=== PATIENT | male | born 1965 | race Caucasian/White ===

== ENCOUNTER 2016-05-17 16:09 | Inpatient (IN) | payer OTHER, MEDICARE ==
[~2016-05-17] VITALS: Ht 165.1 cm; Wt 67.1 kg
[~2016-05-17 16:09] MED LIST: [UNRECOGNIZED DRUG - OTHER] PO
[2016-05-17 16:15] VITALS: BP 159/87; PULSE 88; RESP 17; TEMP 97; O2SAT 97
[2016-05-17 18:13] LABS: AUTOMATED NEUTROPHIL # 6.1 TH/MM3 (1.8-7.7); BASOPHIL # 0.1 TH/MM3 (0-0.2); BASOPHIL % 0.6 % (0.0-2.0); EOSINOPHIL % 0.5 % (0.0-4.0); HEMATOCRIT 43.6 % (39.0-51.0); HEMO FLAGS DIFF FINAL; LYMPH % 24.3 % (9.0-44.0); LYMPHOCYTE # 2.3 TH/MM3 (1.0-4.8); MEAN CELL VOLUME 91.8 FL (80.0-100.0); MEAN CORPUSCULAR HEMOGLOBIN 31.5 PG (27.0-34.0); MEAN CORPUSCULAR HGB CONC 34.3 % (32.0-36.0); MONO % 9.9 % (0.0-8.0); NEUT % 64.7 % (16.0-70.0); PLATELET COUNT 171 TH/MM3 (150-450); RED BLOOD COUNT 4.75 MIL/MM3 (4.50-5.90); RED CELL DISTRIBUTION WIDTH 11.7 % (11.6-17.2); WHITE BLOOD COUNT 9.4 TH/MM3 (4.0-11.0)
[2016-05-17] MEDS ORDERED: BACLOFEN 10 MG TAB PO ONE (18:15)
[2016-05-17] MEDS ORDERED: IBUPROFEN 800 MG TAB PO ONE (18:15)
[2016-05-17 18:37] LABS: ALT (GPT) 12 U/L (12-78); ANION GAP 7 MEQ/L (5-15); AST (GOT) 3 U/L (15-37); BICARBONATE 28.4 MEQ/L (21.0-32.0); BLOOD UREA NITROGEN 18 MG/DL (7-18); CHLORIDE 98 MEQ/L (98-107); GLOMERULAR FILTRATION RATE 84 ML/MIN (>89); POTASSIUM 3.8 MEQ/L (3.5-5.1); SODIUM (NA) 133 MEQ/L (136-145)
[2016-05-17 18:39] LABS: ALKALINE PHOSPHATASE 51 U/L (45-117); TOTAL BILIRUBIN ADULT 0.3 MG/DL (0.2-1.0)
--- NOTE | 2016-05-17 18:45 | PD ---
HPI Chief Complaint: Psychiatric Symptoms Time Seen by Provider: 18:00 Travel History International Travel<30 days: No Contact w/Intl Traveler<30days: No Traveled to known affect area: No History of Present Illness HPI Patient is a 51-year-old male who presents to the emergency Department under a Vicente act for suicidal ideations. Patient states that he told his that he was seeing and hearing things began, this started an argument with his he subsequently called the police on himself and they Vicente acted him after he told them that he was going to harm himself. Patient states that he has a previous suicide attempt when he was 17 years old after his father . He states at that time he took pills and drank a lot of alcohol. Patient's past medical history includes bipolar disorder, chronic back pain, type 2 diabetes on metformin. PFS Past Medical History Bipolar Disorder: Yes Heart Rhythm Problems: Yes (TACHYCARDIA) Diminished Hearing: No Musculoskeletal: Yes (chronic back pain) Past Surgical History Other Surgery: Yes (NERVE STIMULATOR IMPLANTED FOR BACK PAIN; EPIDURAL INJECTIONS X 6) Social History Alcohol Use: No Tobacco Use: Yes (3/4 PPD) Substance Use: No Allergies-Medications (Allergen,Severity, Reaction): Coded Allergies: Erythromycin (Verified Allergy, Severe, 01/26/09) Penicillin (Verified Allergy, Severe, 01/26/09) Reported Meds & Prescriptions Reported Meds & Active Scripts Active Reported [Cybaxin] 4 Mg PO QID Review of Systems Except as stated in HPI: all other systems reviewed are Neg Musculoskeletal: Positive: Myalgias, Pain (chronic in his back) Psychiatric: Positive: Suicidal Ideations, Mood Disorder Physical Exam Narrative GENERAL: Well-developed, well-nourished, alert male. Sitting comfortably in chair, in no acute distress. SKIN: Warm and dry. HEAD: Atraumatic. Normocephalic. EYES: Pupils equal and round. No scleral icterus. No injection or drainage. ENT: No nasal bleeding or discharge. Mucous membranes pink and moist. NECK: Trachea midline. No JVD. CARDIOVASCULAR: Regular rate and rhythm. No murmur appreciated. RESPIRATORY: No accessory muscle use. Clear to auscultation. Breath sounds equal bilaterally. GASTROINTESTINAL: Abdomen soft, non-tender, nondistended. Hepatic and splenic margins not palpable. MUSCULOSKELETAL: No obvious deformities. No clubbing. No cyanosis. No edema. NEUROLOGICAL: Awake and alert. No obvious cranial nerve deficits. Motor grossly within normal limits. Normal speech. PSYCHIATRIC: Appropriate mood and affect Data Data Last Documented VS Vital Signs Date Time Temp Pulse Resp B/P Pulse Ox O2 Delivery O2 Flow Rate FiO2 05/17/16 16:15 97.0 88 17 159/87 97 Orders Complete Blood Count With Diff (05/17/16 17:06) Comprehensive Metabolic Panel (05/17/16 17:06) Drug Screen, Random Urine (05/17/16 17:06) Alcohol (Ethanol) (05/17/16 17:06) Psych Screen (05/17/16 17:06) Baclofen (Lioresal) (05/17/16 18:15) Ibuprofen (Motrin) (05/17/16 18:15) Labs Laboratory Tests Test 05/17/16 17:10 White Blood Count 9.4 TH/MM3 Red Blood Count 4.75 MIL/MM3 Hemoglobin 14.9 GM/DL Hematocrit 43.6 % Mean Corpuscular Volume 91.8 FL Mean Corpuscular Hemoglobin 31.5 PG Mean Corpuscular Hemoglobin 34.3 % Concent Red Cell Distribution Width 11.7 % Platelet Count 171 TH/MM3 Mean Platelet Volume 9.3 FL Neutrophils (%) (Auto) 64.7 % Lymphocytes (%) (Auto) 24.3 % Monocytes (%) (Auto) 9.9 % Eosinophils (%) (Auto) 0.5 % Basophils (%) (Auto) 0.6 % Neutrophils # (Auto) 6.1 TH/MM3 Lymphocytes # (Auto) 2.3 TH/MM3 Monocytes # (Auto) 0.9 TH/MM3 Eosinophils # (Auto) 0.0 TH/MM3 Basophils # (Auto) 0.1 TH/MM3 CBC Comment DIFF FINAL Differential Comment Sodium Level 133 MEQ/L Potassium Level 3.8 MEQ/L Chloride Level 98 MEQ/L Carbon Dioxide Level 28.4 MEQ/L Anion Gap 7 MEQ/L Blood Urea Nitrogen 18 MG/DL Creatinine 0.95 MG/DL Estimat Glomerular Filtration 84 ML/MIN Rate Random Glucose 97 MG/DL Calcium Level 9.3 MG/DL Total Bilirubin 0.3 MG/DL Aspartate Amino Transf 3 U/L (AST/SGOT) Alanine Aminotransferase 12 U/L (ALT/SGPT) Alkaline Phosphatase 51 U/L Total Protein 7.4 GM/DL Albumin 4.1 GM/DL Ethyl Alcohol Level LESS THAN 3 MG/DL MDM Medical Decision Making Medical Screen Exam Complete: Yes Emergency Medical Condition: Yes Interpretation(s) Vital Signs Date Time Temp Pulse Resp B/P Pulse Ox O2 Delivery O2 Flow Rate FiO2 05/17/16 16:15 97.0 88 17 159/87 97 Differential Diagnosis Substance abuse versus mood disorder versus depression versus delirium versus psychosis versus bipolar disorder Narrative Course Patient is a 51-year-old male that was brought in under Vicente act for suicidal ideations. Patient is alert and oriented, he has no physical complaints other than his chronic back pain at this time. He does endorse visual and auditory hallucinations. He also endorses telling the police that he would kill himself. Patient has a previous suicide attempt. Labs ordered and pending. Patient was given medications to help alleviate his chronic back pain, he was moved to a stretcher for comfort and given a meal tray. Labs reviewed and are unremarkable. Patient's vital signs are stable. He is medically cleared at this time for psychiatric evaluation Diagnosis Primary Impression: Medical clearance for psychiatric admission Additional Impression: Suicidal ideation Condition: Stable Bernice Casillas May 17, 2016 18:45
[2016-05-17 22:41] VITALS: BP 134/65; PULSE 69; RESP 18; O2SAT 99
[2016-05-18] MEDS: LORazepam 1 MG TAB PO PRN ×2 (01:00→09:27)
[2016-05-18] MEDS ORDERED: MAGNESIUM HYDROXIDE SUSP 30 ML CUP PO PRN ×2 (01:00→16:00)
[2016-05-18] MEDS ORDERED: diphenhydrAMINE HCL 50 MG CAP PO PRN (01:00)
[2016-05-18] MEDS ORDERED: hydrOXYzine HCL 50 MG TAB PO PRN (01:00)
[2016-05-18] MEDS ORDERED: HALOPERIDOL 5 MG TAB PO SCH (01:00)
[2016-05-18] MEDS ORDERED: LORazepam 2 MG/ML VIAL IM PRN (01:00)
[2016-05-18] MEDS ORDERED: ALUMINUM/MAGNESIUM/SIMETH 30 ML CUP PO PRN (01:00)
[2016-05-18] MEDS ORDERED: BENZTROPINE MESYLATE 1 MG TAB PO PRN (01:00)
[2016-05-18] MEDS ORDERED: diphenhydrAMINE HCL 50 MG/ML VIAL IM PRN (01:00)
[2016-05-18] MEDS ORDERED: BENZTROPINE MESYLATE 2 MG/2 ML VIAL IM PRN (01:00)
[2016-05-18] MEDS ORDERED: GABA600T PO (01:15)
[2016-05-18] MEDS ORDERED: METO50TA PO (01:15)
[2016-05-18] MEDS ORDERED: GEMF600T PO (01:15)
[2016-05-18] MEDS ORDERED: AMLO5TAB2 PO (01:15)
[2016-05-18] MEDS ORDERED: HYDR-3366 PO (01:15)
[2016-05-18] MEDS ORDERED: LISI40TA PO (01:15)
[2016-05-18] MEDS ORDERED: SERO100T PO (01:15)
[2016-05-18] MEDS ORDERED: VORT1TAB2 PO (01:15)
[2016-05-18] MEDS ORDERED: METF500T PO (01:15)
[2016-05-18] MEDS: ACETAMINOPHEN 325 MG TAB PO PRN (02:32)
[2016-05-18 02:38] VITALS: BP 127/92; PULSE 82; RESP 18; TEMP 98
[2016-05-18 06:20] VITALS: BP 129/69; PULSE 71; RESP 18; TEMP 98; O2SAT 98
[2016-05-18 06:52] LABS: BASOPHIL % 0.7 % (0.0-2.0); EOSINOPHIL # 0.1 TH/MM3 (0-0.4); EOSINOPHIL % 0.8 % (0.0-4.0); HEMATOCRIT 43.2 % (39.0-51.0); HEMO FLAGS DIFF FINAL; LYMPH % 25.6 % (9.0-44.0); LYMPHOCYTE # 1.6 TH/MM3 (1.0-4.8); MEAN CELL VOLUME 92.1 FL (80.0-100.0); MEAN CORPUSCULAR HEMOGLOBIN 31.3 PG (27.0-34.0); MONO % 10.6 % (0.0-8.0); NEUT % 62.3 % (16.0-70.0); PLATELET COUNT 162 TH/MM3 (150-450); RED BLOOD COUNT 4.69 MIL/MM3 (4.50-5.90); RED CELL DISTRIBUTION WIDTH 11.8 % (11.6-17.2); WHITE BLOOD COUNT 6.4 TH/MM3 (4.0-11.0)
[2016-05-18 07:03] LABS: ANION GAP 6 MEQ/L (5-15); BICARBONATE 30.9 MEQ/L (21.0-32.0); BLOOD UREA NITROGEN 17 MG/DL (7-18); CHLORIDE 101 MEQ/L (98-107); GLOMERULAR FILTRATION RATE 90 ML/MIN (>89); SODIUM (NA) 138 MEQ/L (136-145); THYROXINE (T4) 5.5 MCG/DL (4.5-12.1)
[2016-05-18 07:12] LABS: HDL CHOLESTEROL 46.4 MG/DL (40.0-60.0); LDL CHOLESTEROL 72 MG/DL (0-99)
[2016-05-18] MEDS: NICOTINE 21 MG/24 HR PATCH T-DERMAL SCH (08:55)
[2016-05-18] MEDS: HALOPERIDOL 5 MG TAB PO SCH ×2 (08:55→20:13)
[2016-05-18] MEDS ORDERED: DEXTROSE 50% IN WATER 50 ML VIAL(D50) IV PUSH PRN (11:30)
[2016-05-18] MEDS ORDERED: GLUCAGON 1 MG/ML VIAL OTHER PRN (11:30)
[2016-05-18] MEDS: METOPROLOL TARTRATE 50 MG TAB PO SCH ×2 (11:45→20:13)
[2016-05-18] MEDS: amLODIPine BESYLATE 5 MG TAB PO SCH (11:45)
[2016-05-18] MEDS: GEMFIBROZIL 600 MG TAB PO SCH ×2 (11:45→16:00)
[2016-05-18] MEDS: GABAPENTIN 300 MG CAP PO SCH ×2 (12:31→17:07)
[2016-05-18] MEDS: metFORMIN HCL 500 MG TAB PO SCH ×2 (13:30→17:07)
--- NOTE | 2016-05-18 13:35 | MB ---
cc: KELSY ALFARO DATE OF CONSULTATION 05/18/2016 DATE OF [address] Serrano/[facility] CONSULTING DOCTOR Dr. Kelsy Alafro REASON FOR ADMISSION Psychiatric problem REASON FOR CONSULTATION Assistance in medical management. HISTORY OF PRESENT ILLNESS The patient is very pleasant 51-year-old male with a significant past medical history of hypertension, diabetes who was brought to the ER under a Vicente Act because of the suicidal ideation. The patient was seeing things and hearing things. He called the police on himself and Vicente Acted. He was brought to the ER. In the ER, he was evaluated by the ER physician and admitted to the psychiatric facility because of suicidal ideation. The patient was seen in his room in the psychiatric facility with the RN at bedside. The patient was complaining of just back pain. He wants his pain medication which he is taking. He has a chronic back problem for which he was taking pain medication at home. As per patient, he had a neck stimulator in the past which was taken off because it was malfunctioning. The patient has no other problems. He denies any headache, dizziness, nausea or vomiting, chest pain, diaphoresis, palpitations, cough, fever, chills, abdominal pain, diarrhea or constipation, genitourinary symptoms. There is no rash or itching. PAST MEDICAL HISTORY Hypertension Diabetes Bipolar disorder Chronic back pain seems like dependent. PAST SURGICAL HISTORY Nerve stimulator implanted for the back pain in the past. It was taken out. REVIEW OF SYSTEMS As described above, otherwise negative for 10 systems. SOCIAL HISTORY The patient smokes, as per the patient's three-quarters of a pack per day. He does not drink or do any drugs. He is and lives with his . He does not do any work. ALLERGIES THE PATIENT IS ALLERGIC TO ERYTHROMYCIN AND PENICILLIN. MEDICATIONS Reviewed please SEE EMR. FAMILY HISTORY Noncontributory EXAMINATION The patient is alert and oriented x3, well-built, well-nourished sitting on the bed before examination without any apparent distress. VITAL SIGNS: The patient is afebrile, pulse is 71, respiratory rate is 18, blood pressure 129/69, pulse of 98% on room air. HEENT: Head is atraumatic, normocephalic. Eyes negative conjunctival icterus. Mouth unremarkable. NECK: Supple, no increased in JVD. Negative thyromegaly. Central trachea. RESPIRATORY: Chest is clear to auscultation. CARDIOVASCULAR: S1 and S2 audible. Unable to hear an S3 gallop. GI: Abdomen soft and nontender, no organomegaly. Positive bowel sounds. MUSCULOSKELETAL: No cyanosis or pedal edema appreciated. CHECK SCALER: Alert, oriented, normal facial features, normal power and tone of extremities. SKIN: Warm and dry. PSYCH: Flat affect. INVESTIGATIONS CBC within normal limits. BMP within normal limits. LFTs within normal limits. Ethyl alcohol level less than 3. ASSESSMENT 1. Suicidal thoughts and ideation 2. Bipolar disorder 3. Hypertension 4. Diabetes 5. Chronic back pain 6. Nicotine abuse RECOMMENDATIONS 1. Continue home medication as reviewed and as indicated. 2. Continue pain medication as the patient is taking at home. 3. Continue antidiabetic medication as the patient is taking at home. 4. Sliding scale insulin coverage with low-dose NovoLog. 5. Monitor BP. 6. Psychiatric management as per psychiatrist. 7. Counseled about anti-smoking. 8. Condition discussed with the patient. 9. Further recommendations to follow as per patient progress. 10. We will follow the patient. Thank you Dr. Kumar/Maggie for this consultation. We will follow with you. Kelsy Alfaro MD JP/[place]ARLAND /1:04 PM /1:20 PM
[2016-05-18] MEDS: INSULIN NovoLIN REGULAR SUPPLEMENTAL SCALE SQ SCH ×2 (16:00→21:00)
--- NOTE | 2016-05-18 16:12 | MH ---
cc: HARRISON SMITH M.D. DATE OF ADMISSION 05/18/2016 PRESENTING CHIEF COMPLAINT AND HISTORY OF PRESENT ILLNESS This 51-year-old white male was initially evaluated at the emergency service of [facility] where he was taken by the police under a Vicente ACT because of suicidal thoughts. Because of his medical issues he was transferred to the emergency room of this hospital where he was admitted after being medically cleared. Apparently he has been feeling quite distressed because of the chronic back pain. During his evaluation by the psychiatric screener he indicated that he has been hearing voices for sometime which he attributed to the medication prescribed by his primary care physician. During this evaluation he denied any suicidal or homicidal ideations. Prior to evaluation the case was discussed with the nursing staff on the unit who indicated since admission he has been somewhat depressed, seclusive and self isolative. Present during this evaluation was [employer] social [employer] senior associate and KIRTI Summers. At the time of this evaluation Mr. Silva looked somewhat depressed and displayed underlying anger. When asked about his understanding of the reason for this hospitalization he responded "I have been getting angry, I have been getting anxious. I tried to talk to my and she was not willing to listen so I became more angry and I called the police and told them that I was thinking of hurting myself. They Vicente Acted me and took me to [facility] but then they transferred me here because of my medical issues." He mentioned that he has experienced "anxiety and depression" for many years, especially after the of his father in the mid 80s. He stated that he was very close to him. He described himself as being "sad and grumpy most of the time" for past several months. He mentioned occasionally he would feel "happy" however, however when further explored he did not give any history suggestive of hypomania or eladio. He stated he has been having difficulty falling asleep and would wake up in the middle of night. He denied experiencing any nightmares. He mentioned his appetite had declined. When specifically inquired about his suicidal thoughts he indicated that he did make such statements prior to admission out of anger and frustration at his but denied actual intent or plan "I was not going to do it." He stated that soon after the of his father in the mid 80s he overdosed but did not tell anybody and as such did not receive any treatment. He mentioned over the years his memory and concentration also had declined. When further explored he acknowledged him not having much communication with his . 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 He sustained a work-related injury about 13 years ago and since then has not been gainfully employed and is on disability. He described his typical day as waking up in the morning, dropping his son to school and waiting for his to come home. having a cup of coffee. At this time his goes to sleep and he watches TV and feels "bored." Around 6:00 p.m. his goes back to work and he has nothing much to do. From what he described he does not have much in the form of social support except his . They have been for 20 years and according to him they have been having frequent arguments. He denied any other known psychosocial stressors. He did not give any history suggestive of panic disorder. PAST PSYCHIATRIC HISTORY As mentioned about a month ago he started seeing a psychiatrist at [facility]. He was put on Latuda which according to him did not help him much. About 2 months or so ago and his primary care physician started on BuSpar which according to him caused him to have "hallucinations." Since he stopped he has not been experiencing any auditory or visual hallucinations. He denied any previous psychiatric hospitalization. PAST MEDICAL HISTORY He has history of: 1. Diabetes mellitus. 2. Hypertension. 3. Chronic pain due to work-related injury. He underwent back surgery. ALLERGIES HE IS ALLERGIC TO PENICILLIN AND ERYTHROMYCIN. MEDICATIONS His current medications are: 1. Prinivil 40 mg daily. 2. Seroquel 100 mg q.h.s. 3. Glucophage 500 mg t.i.d. p.c. 4. Gabapentin 600 milligrams three times a day. 5. Norvasc 5 mg daily. 6. Lopid 600 mg b.i.d. a.c. 7. Hydrocodone 10/325 q.6h p.r.n. 8. Lopressor 50 mg b.i.d. FAMILY HISTORY Both of his parents are . He had a brother who also . He denied any family history of psychiatric illness or substance abuse. PERSONAL AND SOCIAL HISTORY He grew up in [place] and finished high school. He described his childhood as "real good." He denied engaging in any delinquent behavior. He denied any history of physical or sexual trauma. He started drinking heavily in his 20s and had received two DUIs. Currently he is not drinking at all. He denied any history of drug abuse. He has been once to his current for 20 years and they have one son. 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 There he injured his back. He was on worker's comp which has been settled now. He is currently on disability. CLINICAL OBSERVATION AND MENTAL STATUS EXAM At the time of this evaluation Mr. Silva presented as a casually dressed, reasonably well-groomed white male who looks somewhat older than his stated age. He was overall pleasant and cooperative with this interviewer, however, underlying anger was noticeable. His responses to questions were relevant and logical. No bizarre behavioral mannerisms were noticed. His speech was coherent and appropriate. His affect was blunted with underlying anger. Subjectively he described his mood as "I have been feeling depressed, anxious." There was no evidence of any thought disorder. No laura delusions, auditory or visual hallucinations were noticed or reported by me at this time. He denied active suicidal or homicidal ideations or intent at this time and acknowledged his suicidal statements were made out of anger and frustration "I was not going to hurt myself, I said that because I was upset." He overdosed after the of his father in mid 80s. Cognitive functions he was alert, oriented to place, person and situation. Memory immediate he could do 5 digits and 4 digits backward. Recent he could recall 3/3 objects after 10 minutes. Remote he could recall presidents up to President Nunez Jr. His attention and concentration was impaired. He could not do serial sevens beyond 93 and that too with difficulty. He could correctly . His judgment and insight was felt to be fair. REVIEW OF SYSTEMS AND PHYSICAL EXAMINATION Not done as this has been done by the medical facilities section director on the case. DIAGNOSTIC IMPRESSION [place] I: Major depressive disorder, moderate, single episode. History of alcohol abuse under remission. 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 [place] III: Diabetes mellitus, hypertension, hyperlipidemia, chronic back pain, status post back surgery. [place] IV: Severity of psychosocial stressors moderate i.e. chronic pain / medical issues, possible marital discord. [place] V: Current GAF score 40. FORMULATION AND TREATMENT PLAN Based on this evaluation and the background information available to me at this time, Mr. Silva is experiencing a moderate degree of depression as manifested by persistent feelings of sadness, irritability, neurovegetative symptoms. His depression is compounded by above identified psychosocial stressors. To alleviate his depression he will be started on Cymbalta. The risks, benefits, and alternatives were explained to him and he understood and was supportive. Seroquel will be discontinued. He will be given p.r.n. Ativan to reduce his anxiety. Above-mentioned issues will be further explored and addressed in individual psychotherapy sessions. He will participate in various other unit activities i.e. occupational therapy, recreational therapy, group therapy. Medical consult will be requested for assistance in the management of medical problems. He is identified problems: 1. Depression. 2. High anxiety level. 3. Current psychosocial stressors. His assets are: 4. He is verbal. 5. Motivated to seek help. His estimated length of stay is 5-7 days. MD JOSE CRUZ Rodas/DARA /3:09 PM /3:34 PM
[2016-05-18 17:13] LABS: HEMOGLOBIN A1a 1.1 %; HEMOGLOBIN Ao 84.5 %; HEMOGLOBIN LA1C 2.1 %; HEMOGLOBIN P3 4.1 %
[2016-05-18 18:39] VITALS: BP 129/67; PULSE 94; RESP 18; TEMP 98.7; O2SAT 98
[2016-05-18] MEDS ORDERED: QUEtiapine FUMARATE 100 MG TAB PO SCH (21:00)
[2016-05-18] MEDS: REMOVE OLD NICOTINE PATCH T-DERMAL SCH (21:00)
[2016-05-19] MEDS: ACETAMINOPHEN/HYDROcodone 325 MG/10 MG TAB PO PRN ×3 (04:42→18:29)
[2016-05-19] MEDS: GEMFIBROZIL 600 MG TAB PO SCH ×2 (06:03→16:20)
[2016-05-19] MEDS: INSULIN NovoLIN REGULAR SUPPLEMENTAL SCALE SQ SCH ×4 (06:13→21:00)
[2016-05-19 06:17] VITALS: BP 124/76; PULSE 72; RESP 16; TEMP 98.1
[2016-05-19 07:43] LABS: AUTOMATED NEUTROPHIL # 3.7 TH/MM3 (1.8-7.7); BASOPHIL # 0.1 TH/MM3 (0-0.2); BASOPHIL % 1.1 % (0.0-2.0); EOSINOPHIL # 0.1 TH/MM3 (0-0.4); EOSINOPHIL % 0.9 % (0.0-4.0); HEMATOCRIT 43.4 % (39.0-51.0); HEMO FLAGS DIFF FINAL; LYMPH % 27.1 % (9.0-44.0); LYMPHOCYTE # 1.7 TH/MM3 (1.0-4.8); MEAN CELL VOLUME 93.2 FL (80.0-100.0); MEAN CORPUSCULAR HEMOGLOBIN 31.1 PG (27.0-34.0); MEAN CORPUSCULAR HGB CONC 33.4 % (32.0-36.0); MONO % 13.1 % (0.0-8.0); NEUT % 57.8 % (16.0-70.0); PLATELET COUNT 198 TH/MM3 (150-450); RED BLOOD COUNT 4.65 MIL/MM3 (4.50-5.90); WHITE BLOOD COUNT 6.5 TH/MM3 (4.0-11.0)
[2016-05-19 08:17] LABS: ANION GAP 7 MEQ/L (5-15); BICARBONATE 28.8 MEQ/L (21.0-32.0); BLOOD UREA NITROGEN 19 MG/DL (7-18); CHLORIDE 103 MEQ/L (98-107); FREE T4 1.04 NG/DL (0.76-1.46); GLOMERULAR FILTRATION RATE 97 ML/MIN (>89); HDL CHOLESTEROL 48.9 MG/DL (40.0-60.0); LDL CHOLESTEROL 64 MG/DL (0-99); POTASSIUM 4.3 MEQ/L (3.5-5.1); SODIUM (NA) 139 MEQ/L (136-145)
[2016-05-19] MEDS: NICOTINE 21 MG/24 HR PATCH T-DERMAL SCH (08:22)
[2016-05-19] MEDS: DULoxetine HCl DR 20 MG CAP PO SCH (08:22)
[2016-05-19] MEDS: METOPROLOL TARTRATE 50 MG TAB PO SCH ×2 (08:22→20:29)
[2016-05-19] MEDS: GABAPENTIN 300 MG CAP PO SCH ×3 (08:23→18:29)
[2016-05-19] MEDS: metFORMIN HCL 500 MG TAB PO SCH ×3 (08:23→18:30)
[2016-05-19] MEDS: amLODIPine BESYLATE 5 MG TAB PO SCH (08:23)
[2016-05-19] MEDS: HALOPERIDOL 5 MG TAB PO SCH ×2 (08:23→20:29)
[2016-05-19] MEDS: LISINOPRIL 20 MG TAB PO SCH (08:24)
[2016-05-19] MEDS ORDERED: VORTIOXETINE 10 MG PO SCH (09:00)
[2016-05-19 10:46] LABS: HEMOGLOBIN A1a 1.1 %; HEMOGLOBIN Ao 84.6 %; HEMOGLOBIN LA1C 2.1 %
[2016-05-19 19:14] VITALS: BP 116/68; PULSE 82; RESP 16; TEMP 98
[2016-05-19] MEDS: traZODone HCL 50 MG TAB PO PRN (20:39)
[2016-05-19] MEDS: REMOVE OLD NICOTINE PATCH T-DERMAL SCH (21:00)
[2016-05-20] MEDS: ACETAMINOPHEN/HYDROcodone 325 MG/10 MG TAB PO PRN ×3 (04:58→20:17)
[2016-05-20 06:17] VITALS: BP 122/71; PULSE 65; RESP 17; TEMP 97.8
[2016-05-20] MEDS: GEMFIBROZIL 600 MG TAB PO SCH ×2 (06:18→16:10)
[2016-05-20] MEDS: INSULIN NovoLIN REGULAR SUPPLEMENTAL SCALE SQ SCH ×4 (06:18→20:18)
[2016-05-20 08:00] VITALS: BP 118/75; PULSE 78; RESP 20; TEMP 98.1
[2016-05-20] MEDS: HALOPERIDOL 5 MG TAB PO SCH ×2 (08:41→20:16)
[2016-05-20] MEDS: DULoxetine HCl DR 20 MG CAP PO SCH (08:41)
[2016-05-20] MEDS: METOPROLOL TARTRATE 50 MG TAB PO SCH ×2 (08:42→20:16)
[2016-05-20] MEDS: amLODIPine BESYLATE 5 MG TAB PO SCH (08:42)
[2016-05-20] MEDS: GABAPENTIN 300 MG CAP PO SCH ×3 (08:42→17:50)
[2016-05-20] MEDS: LISINOPRIL 20 MG TAB PO SCH (08:42)
[2016-05-20] MEDS: NICOTINE 21 MG/24 HR PATCH T-DERMAL SCH (09:10)
[2016-05-20] MEDS: metFORMIN HCL 500 MG TAB PO SCH ×3 (09:10→17:50)
[2016-05-20 19:40] VITALS: BP 111/74; PULSE 86; RESP 16; TEMP 97.6; O2SAT 97
[2016-05-20] MEDS: traZODone HCL 50 MG TAB PO PRN (20:16)
[2016-05-20] MEDS: REMOVE OLD NICOTINE PATCH T-DERMAL SCH (20:18)
[2016-05-21 05:21] VITALS: BP 116/70; PULSE 70; RESP 16; TEMP 97.9
[2016-05-21] MEDS: ACETAMINOPHEN/HYDROcodone 325 MG/10 MG TAB PO PRN ×3 (05:46→20:32)
[2016-05-21] MEDS: INSULIN NovoLIN REGULAR SUPPLEMENTAL SCALE SQ SCH ×4 (06:00→21:00)
[2016-05-21] MEDS: GEMFIBROZIL 600 MG TAB PO SCH ×2 (06:00→16:00)
[2016-05-21] MEDS: LISINOPRIL 20 MG TAB PO SCH (08:30)
[2016-05-21] MEDS: metFORMIN HCL 500 MG TAB PO SCH ×3 (08:30→17:54)
[2016-05-21] MEDS: GABAPENTIN 300 MG CAP PO SCH ×3 (08:31→17:54)
[2016-05-21] MEDS: DULoxetine HCl DR 20 MG CAP PO SCH (08:31)
[2016-05-21] MEDS: amLODIPine BESYLATE 5 MG TAB PO SCH (08:31)
[2016-05-21] MEDS: METOPROLOL TARTRATE 50 MG TAB PO SCH ×2 (08:31→20:32)
[2016-05-21] MEDS: HALOPERIDOL 5 MG TAB PO SCH ×2 (08:31→20:32)
[2016-05-21] MEDS: NICOTINE 21 MG/24 HR PATCH T-DERMAL SCH (08:31)
[2016-05-21 19:04] VITALS: BP 115/65; PULSE 81; RESP 18; O2SAT 95
[2016-05-21] MEDS: traZODone HCL 50 MG TAB PO PRN (20:32)
[2016-05-21] MEDS: REMOVE OLD NICOTINE PATCH T-DERMAL SCH (21:00)
[2016-05-22 05:36] VITALS: BP 112/61; PULSE 69; RESP 20; TEMP 98.4
[2016-05-22] MEDS: INSULIN NovoLIN REGULAR SUPPLEMENTAL SCALE SQ SCH ×4 (06:14→20:58)
[2016-05-22] MEDS: GEMFIBROZIL 600 MG TAB PO SCH ×2 (06:17→16:11)
[2016-05-22] MEDS: ACETAMINOPHEN/HYDROcodone 325 MG/10 MG TAB PO PRN ×2 (06:20→12:58)
[2016-05-22] MEDS: amLODIPine BESYLATE 5 MG TAB PO SCH (08:45)
[2016-05-22] MEDS: GABAPENTIN 300 MG CAP PO SCH ×3 (08:45→17:18)
[2016-05-22] MEDS: METOPROLOL TARTRATE 50 MG TAB PO SCH ×2 (08:45→20:58)
[2016-05-22] MEDS: DULoxetine HCl DR 30 MG CAP PO SCH (08:45)
[2016-05-22] MEDS: NICOTINE 21 MG/24 HR PATCH T-DERMAL SCH (08:45)
[2016-05-22] MEDS: HALOPERIDOL 5 MG TAB PO SCH (08:45)
[2016-05-22] MEDS: metFORMIN HCL 500 MG TAB PO SCH ×3 (08:45→17:18)
[2016-05-22] MEDS: LISINOPRIL 20 MG TAB PO SCH (08:46)
[2016-05-22] MEDS: ACETAMINOPHEN 325 MG TAB PO PRN (11:03)
[2016-05-22 18:47] VITALS: BP 119/62; PULSE 67; RESP 18; O2SAT 99
[2016-05-22] MEDS: traZODone HCL 50 MG TAB PO PRN (20:58)
[2016-05-22] MEDS: REMOVE OLD NICOTINE PATCH T-DERMAL SCH (21:00)
[2016-05-23] MEDS: ACETAMINOPHEN/HYDROcodone 325 MG/10 MG TAB PO PRN ×2 (05:27→13:09)
[2016-05-23 05:49] VITALS: BP 106/68; PULSE 79; RESP 17; TEMP 98.1; O2SAT 96
[2016-05-23] MEDS: GEMFIBROZIL 600 MG TAB PO SCH (06:25)
[2016-05-23] MEDS: INSULIN NovoLIN REGULAR SUPPLEMENTAL SCALE SQ SCH ×2 (06:37→11:00)
[2016-05-23] MEDS: metFORMIN HCL 500 MG TAB PO SCH ×2 (08:37→13:09)
[2016-05-23] MEDS: NICOTINE 21 MG/24 HR PATCH T-DERMAL SCH (08:37)
[2016-05-23] MEDS: GABAPENTIN 300 MG CAP PO SCH ×2 (08:37→13:09)
[2016-05-23] MEDS: amLODIPine BESYLATE 5 MG TAB PO SCH (08:37)
[2016-05-23] MEDS: LISINOPRIL 20 MG TAB PO SCH (08:37)
[2016-05-23] MEDS: METOPROLOL TARTRATE 50 MG TAB PO SCH (08:38)
[2016-05-23] MEDS: DULoxetine HCl DR 30 MG CAP PO SCH (08:38)
[2016-05-23] MEDS ORDERED: DULO1CAP2 PO (13:44)
[2016-05-23] MEDS ORDERED: GEMF600 PO (13:44)
--- NOTE | 2016-05-24 07:19 | MD ---
cc: HARRISON SMITH M.D. ADMISSION DATE: 05/18/2016 DISCHARGE DATE: 05/23/2016 ADMISSION DIAGNOSES [place] I: Major depressive disorder moderate single episode. History of alcohol abuse under remission. 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 [place] III: Diabetes mellitus. Hypertension. Hyperlipidemia. Chronic back pain, status post back surgery. [place] IV: Severity of psychosocial stressors moderate i.e. chronic pain/medical issues, possible marital discord. [place] V: Current GAF score 40. DISCHARGE DIAGNOSES [place] I: Major depressive disorder moderate single episode. History of alcohol abuse under remission. 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 [place] III: Diabetes mellitus. Hypertension. Hyperlipidemia. Chronic back pain, status post back surgery. [place] IV: Severity of psychosocial stressors moderate i.e. chronic pain/medical issues, possible marital discord. [place] V: Current GAF score 60. BRIEF HISTORY This 51-year-old white male was initially evaluated at the emergency services of [facility] where he was taken by the police under the Vicente Act because of suicidal thoughts. Because of his medical issues he was transferred to the emergency room of this hospital where he was admitted after being medically cleared. During his evaluation by the psychiatric screener he indicated that he has been hearing voices for sometime which she attributed to the medication prescribed by his primary care physician. During this evaluation he denied entertaining any suicidal or homicidal ideations. It should be mentioned that during his evaluation with me, he denied experiencing any auditory or visual hallucinations, however, did indicate that he had experienced these about a month or so ago after he was started on the BuSpar by his primary care physician. Please refer to my initial evaluation for details. LABORATORY WORKUP CBC with differential was done on different dates and was unremarkable. CMP was also done on different dates and was essentially unremarkable. T4 and TSH were normal. Blood alcohol level was less than 3. HOSPITAL COURSE When initially evaluated by me, he was pleasant and cooperative, though looks somewhat depressed and displayed underlying anger. He mentioned he started feeling depressed after the of his father in the mid-80s. Recently he has been having difficulties with his which seemed to have triggered the current suicidal thoughts. However, he denied active intent or plan. He reportedly had experienced auditory hallucinations which he denied he had experienced these prior to this hospitalization. He indicated that he had experienced these about a month or so ago after he was put on BuSpar by his primary care physician. He mentioned since he stopped taking it, he had not experienced these. However, he was started on Haldol in the emergency room. He did not tolerate it well and developed dystonic reaction. As such this was discontinued after discussions with him. Throughout this hospital stay he did not exhibit any symptoms indicative of underlying psychosis. Initially he was somewhat seclusive and withdrawn, very focused on discharge. However, when the need for hospitalization was explained to him, he understood and began to participate in the treatment plan. To alleviate his depression he was started on Cymbalta and the dose was gradually increased. There was noticeable improvement in his neurovegetative symptoms. Towards the end of this hospitalization he displayed very positive attitude. His visited him and according to him the relationship had improved. I encouraged him to seek marriage counseling and he was receptive but believed that his would not be agreeable to this. Throughout this hospital stay he did not exhibit any aggressive or self-destructive behavior nor did he make any threats of harm himself or others. So at this time it is felt by the treatment team that he has received optimum benefit out of this hospitalization and is ready for discharge. He is recommended to continue outpatient followup with his primary care physician. He is also recommended to follow up with psychiatrist at [facility] and also a therapist through [facility]. DISCHARGE MEDICATIONS He is recommended to continue on - 1. Lisinopril 40 mg daily. 2. Glucophage 500 mg t.i.d. p.c. 3. Neurontin 600 mg p.o. t.i.d. 4. Norvasc 5 mg daily. 5. Lopressor 50 mg b.i.d. 6. [place]man 10/325 q.6 hours p.r.n. for pain. No prescription for these was given as, according to the patient, he has enough supply of this. He was given a prescription for - 1. Cymbalta 60 mg one p.o. daily #10 with one refill. 2. Lopid 600 mg p.o. b.i.d. a.c. 10-day supply. During this admission he was seen medically by Dr. Alfaro. MD JOSE CRUZ Rodas/SSB /5:58 PM /7:00 AM
[2016-05-24] MEDS ORDERED: DULoxetine HCl DR 60 MG CAP PO SCH (09:00)
== END 2016-05-23 15:10 | disposition home or self-care (01) | DRG 885 ==
LOC: NEPJ 16:09 → NEDA 05-18 00:48 → H260 05-18 02:09
PROVIDERS: ADMIT Psychiatry & Neurology Psychiatry; ATTEND Psychiatry & Neurology Psychiatry
DX: F32.1 Major depressive disorder, single episode, moderate (principal); E11.9 Type 2 diabetes mellitus without complications; R45.851 Suicidal ideations; I10 Essential (primary) hypertension; F60.3 Borderline personality disorder; F10.10 Alcohol abuse, uncomplicated; F60.89 Other specific personality disorders; G89.29 Other chronic pain; E78.5 Hyperlipidemia, unspecified; M54.9 Dorsalgia, unspecified; F41.9 Anxiety disorder, unspecified; Z91.5 Personal history of self-harm; Z79.84 Long term (current) use of oral hypoglycemic drugs; F17.200 Nicotine dependence, unspecified, uncomplicated; Z88.1 Allergy status to other antibiotic agents; Z88.0 Allergy status to penicillin
CPT/HCPCS: 80048; 80053; 80061; 80320; 82948; 83036; 84436; 84439; 84443; 85025; 99285; J0515; Q0163

== ENCOUNTER 2017-09-11 23:15 | Emergency (ER) | payer OTHER, MEDICARE ==
[2017-09-11 23:58] LABS: AUTOMATED NEUTROPHIL # 4.2 TH/MM3 (1.8-7.7); BASOPHIL # 0.1 TH/MM3 (0-0.2); BASOPHIL % 1.6 % (0.0-2.0); EOSINOPHIL # 0.2 TH/MM3 (0-0.4); EOSINOPHIL % 2.1 % (0.0-4.0); HEMATOCRIT 41.5 % (39.0-51.0); HEMO FLAGS DIFF FINAL; HEMOGLOBIN 14.4 GM/DL (13.0-17.0); LYMPH % 37.7 % (9.0-44.0); LYMPHOCYTE # 3.1 TH/MM3 (1.0-4.8); MEAN CELL VOLUME 87.2 FL (80.0-100.0); MEAN CORPUSCULAR HEMOGLOBIN 30.3 PG (27.0-34.0); MEAN CORPUSCULAR HGB CONC 34.7 % (32.0-36.0); MONO % 7.8 % (0.0-8.0); MONOCYTE # 0.6 TH/MM3 (0-0.9); NEUT % 50.8 % (16.0-70.0); PLATELET COUNT 198 TH/MM3 (150-450); RED BLOOD COUNT 4.76 MIL/MM3 (4.50-5.90); RED CELL DISTRIBUTION WIDTH 13.9 % (11.6-17.2); WHITE BLOOD COUNT 8.3 TH/MM3 (4.0-11.0)
[2017-09-12] LABS: BILIRUBIN, URINE NEG (NEG); BLOOD, URINE NEG (NEG); COMMENT (UR) CULT NOT INDICATED; CULTURE IF INDICATED CULT NOT INDICATED; GLUCOSE,URINE NEG (NEG); HYALINE CAST, URINE 8 /lpf (RARE); KETONE, URINE TRACE mg/dL (NEG); MUCUS URINE FEW /lpf (OCC); NITRITE,URINE NEG (NEG); SQUAMOUS EPITHELIAL CELL URINE <1 /hpf (0-5); URINE COLOR YELLOW (YELLW/STRAW); URINE LEUKOCYTE ESTERASE NEG (NEG)
[2017-09-12 00:04] LABS: AMPHETAMINE, URINE NEG (NEG); BARBITURATES, URINE NEG (NEG); BENZODIAZEPINE,URINE POS (NEG); CANNABINOIDS, URINE NEG (NEG); COCAINE, URINE NEG (NEG)
[2017-09-12 00:07] LABS: SALICYLATES 7.1 MG/DL (2.8-20.0)
[2017-09-12 00:09] LABS: ALBUMIN 3.8 GM/DL (3.4-5.0); ALT (GPT) 25 U/L (12-78); ANION GAP 6 MEQ/L (5-15); AST (GOT) 14 U/L (15-37); BICARBONATE 28.8 MEQ/L (21.0-32.0); BLOOD UREA NITROGEN 17 MG/DL (7-18); CHLORIDE 103 MEQ/L (98-107); CREATININE 1.01 MG/DL (0.60-1.30); GLOMERULAR FILTRATION RATE 78 ML/MIN (>89); GLUCOSE,RANDOM 86 MG/DL (74-106); POTASSIUM 4.4 MEQ/L (3.5-5.1); SODIUM (NA) 138 MEQ/L (136-145)
[2017-09-12 00:20] LABS: ACETAMINOPHEN 2.2 MCG/ML (10.0-30.0); ALCOHOL LESS THAN 3 MG/DL (0-5); ALKALINE PHOSPHATASE 65 U/L (45-117); TOTAL BILIRUBIN ADULT 0.3 MG/DL (0.2-1.0); TOTAL PROTEIN 7.5 GM/DL (6.4-8.2)
[2017-09-12] MEDS: QUEtiapine FUMARATE 100 MG TAB PO (02:11)
[2017-09-12] MEDS: MORPHINE SULFATE 30 MG CONTROLLED RELEASE TAB PO (02:19)
== END 2017-09-12 11:41 | disposition home or self-care (01) ==
LOC: NEPD 23:15
DX: R45.851 Suicidal ideations (principal); R44.0 Auditory hallucinations; F32.9 Major depressive disorder, single episode, unspecified; M54.5 Low back pain; E11.9 Type 2 diabetes mellitus without complications; I10 Essential (primary) hypertension; F17.210 Nicotine dependence, cigarettes, uncomplicated; Z88.1 Allergy status to other antibiotic agents; Z88.0 Allergy status to penicillin; Z79.84 Long term (current) use of oral hypoglycemic drugs
CPT/HCPCS: 80053; 80307; 81001; 84443; 85025; 99284